=== PATIENT | female | born 1995 | race Caucasian/White ===

== ENCOUNTER 2021-03-17 14:31 | Outpatient (REF) | payer OTHER, SELFPAY ==
[2021-03-17 15:16] LABS: COVID-19 Test Negative (Negative); IDNOW Serial# 9DD0AD1C
== END 2021-03-17 14:32 | disposition home or self-care (01) ==
LOC: HO.LAB 14:31
PROVIDERS: PCP Family Medicine; Visit Provider Internal Medicine
DX: Z20.822 Contact with and (suspected) exposure to COVID-19 (principal)
CPT/HCPCS: 87635

== ENCOUNTER 2021-11-20 00:31 | Outpatient (REF) | payer OTHER, SELFPAY ==
[2021-11-20 01:12] LABS: COVID-19 Test Negative (Negative)
== END 2021-11-20 00:32 | disposition home or self-care (01) ==
LOC: HO.LAB 00:31
PROVIDERS: Visit Provider Internal Medicine
DX: Z20.822 Contact with and (suspected) exposure to COVID-19 (principal)
CPT/HCPCS: 87635

== ENCOUNTER 2022-04-18 09:08 | Outpatient (REF) | payer OTHER, SELFPAY ==
--- NOTE | ~2022-04-18 | CT_ITS ---
EXAMINATION: CT SOFT TISSUE NECK WITH CONTRAST CLINICAL INFORMATION: Enlarged lymph nodes. COMPARISON: There are no prior studies available for comparison. TECHNIQUE: Following the intravenous administration of 60 mL of Omnipaque 350 intravenous contrast, helical imaging was performed in the axial plane with generation of coronal and sagittal reformatted images. A few noncontrast images with a BB marking FLAIR were also obtained. This CT examination was performed using dose optimization techniques as appropriate, variously including the following: *Automated exposure control *Adjustment of mA and/or kV according to patient size (this includes techniques or standardized protocols for targeted exams where dose is matched to indication/reason for exam; i.e. extremities or head) *Use of iterative reconstruction technique DLP: 261 mGy-cm FINDINGS: There is no cervical lymphadenopathy. There are 1.2 cm left level IIA and 1.0 cm left level IIB lymph nodes subjacent to the BB marker. There are also smaller lymph nodes at multiple levels in the neck bilaterally. The parotid glands are homogeneous in attenuation; there is accessory parotid tissue along the masseter muscles bilaterally. The submandibular glands are normal. No contour abnormality or pathologic enhancement is seen within the oral cavity or pharyngeal mucosal space. The laryngeal structures are normal. The parapharyngeal fat is preserved. The carotid sheath vasculature opacifies normally. No extra mucosal soft tissue mass or fluid collection is seen. No retropharyngeal fluid collection is seen. The thyroid gland is normal. The left vertebral artery arises directly off the aortic arch, which is a normal variant. There is no mediastinal lymphadenopathy. The lung apices are clear. The mastoid air cells and visualized portions of the paranasal sinuses are well-aerated. The temporomandibular joints are normal. No periapical disease is identified. There is nonspecific straightening of the cervical lordosis which may be positional. There is no spondylosis or facet arthropathy. The imaged portions of the brain parenchyma are unremarkable. CT/CT soft tissue neck w IV con IMPRESSION: 1. There is no cervical lymphadenopathy. There are small lymph nodes at multiple levels in the neck as described above. No masses are demonstrated in the neck.
[2022-04-18] MEDS: iohexoL 350 MG/ML 100 ML INFUS..BTL IV (10:24)
== END 2022-04-18 09:09 | disposition home or self-care (01) ==
LOC: HO.CT 09:08
PROVIDERS: PCP Family Medicine; Visit Provider Specialist
DX: R59.9 Enlarged lymph nodes, unspecified (principal)
CPT/HCPCS: 70491; Q9967

== ENCOUNTER 2024-01-19 12:48 | Outpatient (REF) | payer OTHER, SELFPAY ==
--- NOTE | ~2024-01-19 | US_ITS ---
EXAMINATION: US DIAGNOSTIC ULTRASOUND BREAST, LEFT CLINICAL INFORMATION: 28-year-old female, palpable breast lump lower inner quadrant left breast x2 months. No significant family history. No recent injury.. COMPARISON: None available. TECHNIQUE: Ultrasound of the left breast is performed with real-time rapp scale imaging and color Doppler. Attention to the lower inner quadrant of the left breast was given in the region of palpable concern as indicated by the patient. FINDINGS: There is no focal suspicious finding left breast lower inner quadrant. There is no solid mass, architectural abnormality, cystic abnormality, abnormal shadowing, or edema in the soft tissue planes. US/US breast LT limited mamm only IMPRESSION: 1. No findings suspicious for malignancy left breast. 2. No ultrasound correlate for palpable abnormality left breast lower inner quadrant. Recommend clinical management and follow-up. ASSESSMENT: BI-RADS 1: Negative RECOMMENDATION: 1. Patient should be managed based on the clinical impression. Decision to proceed with biopsy should be based on clinical grounds and degree of clinical concern. This patient's information was entered into a reminder system with a target due date for their next mammogram. Electronically signed by: Lopez Santiago MD 02/09/2024 02:34 PM CHALO SANTO
== END 2024-01-19 12:49 | disposition home or self-care (01) ==
LOC: HO.MAMMO 12:48
PROVIDERS: PCP Nurse Practitioner Adult Health; Visit Provider Nurse Practitioner Adult Health
DX: N63.24 Unspecified lump in the left breast, lower inner quadrant (principal)
CPT/HCPCS: 76642

== ENCOUNTER → 2024-01-19 13:00 | Outpatient (BNV) | payer OTHER, SELFPAY | PROVIDERS: PCP Nurse Practitioner Adult Health; Visit Provider Radiology Diagnostic Radiology | DX: R92.2 Inconclusive mammogram (principal) | CPT/HCPCS: 76642 ==

== ENCOUNTER 2024-12-26 11:43 | Outpatient (REF) | payer OTHER, SELFPAY ==
--- NOTE | ~2024-12-26 | US_ITS ---
EXAMINATION(S): 1. MM DIAGNOSTIC DIGITAL BREAST TOMOSYNTHESIS, BILATERAL 2. Targeted ultrasound of the left breast CLINICAL INFORMATION: FIBROCYSTIC CHANGES Lt FMH BRCA. Patient describes 2 palpable lumps in the left breast located in the lower inner quadrant. COMPARISON: This is a baseline mammogram. TECHNIQUE: Digital breast tomosynthesis is performed in both the mediolateral oblique and craniocaudal views along with computer-aided detection (CAD). Synthesized 2D images are generated from the tomosynthesis. Skin BB markers were placed at the location of the palpable concern as indicated by the patient in the lower inner quadrant of the left breast. FINDINGS: BREAST COMPOSITION: The breasts are heterogeneously dense, which may obscure small masses. RIGHT BREAST: No significant masses, suspicious calcifications or other abnormalities are seen. LEFT BREAST: No significant masses, suspicious calcifications or other abnormalities are seen. In particular, no suspicious mammographic findings adjacent to the skin BB markers in the lower inner quadrant. Targeted ultrasound of the left breast was performed at the location of the palpable concerns as indicated by the patient. The survey throughout the lower inner quadrant did not reveal cysts, fluid collections or any suspicious sonographic findings. US/US Breast LT Limited Mamm Only IMPRESSION: RIGHT BREAST: Negative, no mammographic evidence of malignancy. LEFT BREAST: Negative, no evidence of malignancy. In particular, no mammographic or sonographic findings to accounts for patient's palpable concern. Clinical follow-up is recommended, independent of imaging findings. ASSESSMENT: BI-RADS: Category 1: Negative Results were provided to the patient at time of visit by the technologist. Electronically signed by: Raj Mott MD 12/26/2024 12:46 PM EDT
--- OUTSIDE RECORDS SUMMARY | 2024-12-26 15:09 | XMS_ITS | Encounter Summary ---
Author Organization [facility] Address Formerly [facility] [employer] [facility] [address] [place] [address] Phone Care Team Providers Care Roll Up Operator Name Role Phone Johann Faye MD Unavailable [phone] Clarence Maloney MD Unavailable [phone] Rudy Pradhan CNP Primary Care Provider [phone] Sonya Alcazar CNM Unavailable Jennifer Celeste MD, MPH Unavailable [phone] Encounter Details Date Type Department Care Team (Late Contact Info) Description 10/05/2019 Ancillary Orders [facility],Outside Imaging [address] [place] [address] System, Provider Not In, [facility] [address] [address] Social History Tobacco Use Types Packs/Day Years Used Date Smoking Tobacco: Never Smokeless Tobacco: Never Alcohol Use Standard Drinks/Week Comments Yes 0 (1 standard drink = 0.6 oz pur e alcohol) mixed drinks Comments No Sex and Gender Information Value Date Recorded Sex Assigned at Not on file Legal Sex Female 9:40 PM EDT Gender Identity Not on file Sexual Orientation Not on file 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 Not on file Not on file documented as of this encounter Plan of Treatment Upcoming Encounters Date Type Department Care Team (Late Contact Info) Description 02/16/2025 4:10 PM EST Office Visit [facility] [address] [place] [address] Racheal Stanford MD [address] [facility], [address] [place] [address] [email or web address] 05/31/2025 11:00 AM EDT Office [place] [facility] [address] [place] [address], [address]th Floor, [address] [place] [address] Sonya Christine MD [address] [place] [address] [address] [place] [address] [email or web address] documented as of this encounter Results * CT Chest Outside (No Interpretation) (10/03/2019 12:00 AM EDT) Narrative SYSTEMGENERATED, DOCUMENTATION - 10/05/2019 9:43 AM EDT This study is for PACS storage only and not for interpretation. us Provider Not In System PhD IMG OUTSIDE IMAGING W /OUT INTERPRETATION Final Result documented in this encounter Visit Diagnoses Not on filedocumented in this encounter Additional Health Concerns Infection Onset Date Last Indicated Resolved Time CoV-Risk 02/03/2020 02/04/2020 02/17/2020 1:24 AM EST CoV-Exposed Comment:Recent close contact documented in the COVID-19 PCR/PRO order 04/02/2020 04/04/2020 04/17/2020 1:[address] CoV-Risk 04/04/2020 04/04/2020 04/14/2020 1:24 AM EST CoV-Risk 03/25/2024 03/25/2024 04/05/2024 1:22 AM EST Influenza A 03/25/2024 03/25/2024 04/01/2024 1:22 AM EST Assessment Noted Time PHQ-2 Depression Total Score: 0 03/09/19 18 2:49 PM EST documented as of this encounter Care Teams Roll Up Operator Relationship Specialty Start Date End Date Rudy Pradhan CNP [address] [facility] [place] [address] [email or web address] PCP - General Family Medicine 02/14/19 Johann Faye MD [address] [place] [address] [email or web address] LMR Provider 12/21/16 03/09/21 Clarence Maloney MD [address] [place] [address], [address] [place] [address] [email or web address] Insurance Assigned Provider Family Medicine 03/20/17 Snoya Alcazar CNM [address] [place] [address], [address] [place] [address] [email or web address] Obstetrics and Gynecology 02/14/19 Jennifer Celeste MD, MPH [address] [place] [address], [address] [address] [email or web address] 03/28/19 10/01/23 documented as of this encounter Additional Source Comments The information contained in this document represents components of the legal health record. It is not the complete legal health record.[facility]
--- OUTSIDE RECORDS SUMMARY | 2024-12-26 15:09 | XMS_ITS | Encounter Summary ---
Author Organization [facility] Address [address] [place] [address] Phone Care Team Providers Care Coastal And Estuary Specialist Name Role Phone Clarence Maloney MD Unavailable [phone] Rudy Pradhan CNP Primary Care Provider [phone] Sonya Alcazar CNM Unavailable Encounter Details Date Type Department Care Team (Late st Contact Info) Description 04/06/2024 Procedure Pass [facility] Endoscopy Admitting Dept Virtual Department [address] [place] [address] Social History Tobacco Use Types Packs/Day Years Used Date Smoking Tobacco: Never Smokeless Tobacco: Never Alcohol Use Standard Drinks/Week Comments Not Currently 0 (1 standard drink = 0.6 oz pur e alcohol) 1-2x/month (2023) Child or Family Care Answer Date Record ed Do you have problems with on e of the following making it difficult for you to work, study, or receive health care? No 10/02/2023 Education Answer Date Recorded Are you interested in help w ith more adult education (for example, completing high school, GED, job training, learning the Telugu language, technical skills, or developing parenting skills)? No 10/02/2023 Are you concerned about learning? Not on file 10/02/2023 No 10/02/2023 Yes 10/02/2023 Food Answer Date Recorded Within the past 6 months we worried whether our food would run out before we got money to buy more. Never True 10/02/2023 Within the past 6 months the food we bought just didn't last and we didn't have enough money to get more. Never True Residential Stability Answer Date Recor ded What is your housing situation today? I have florence anglin 10/02/2023 How many times have you move d in the past 12 months? Zero (I did not move) 10/02/2023 Paying for Meds Answer Date Recorded Do you have trouble paying for medicines? No 10/02/2023 Paying Utility Bills Answer Date Record ed Do you have trouble paying your heating or elect ricity bill? No 10/02/2023 Transportation Answer Date Recorded Has the lack of transportati on kept you from medical appointments or from getting medications? No 10/02/2023 Unemployment Answer Date Recorded Are you currently unemployed or working on a part-time or temporary basis, and looking for work? No 10/02/2023 Digital Access Answer Date Recorded No 10/02/2023 Yes 10/02/2023 Do you have reliable internet access at home? Ye s 10/02/2023 Do you have a device (e.g., phone, tablet, computer) with a working camera? Yes 10/02/2023 Intimate Partner Violence Answer Date R ecorded Are you denied basic needs s uch as food, clothing, or medical care? No 04/06/2024 In the past 12 months have y ou been in a relationship with a person who hurts, threatens, or tries to control you? No 04/06/2024 Are you denied basic needs s uch as food, clothing, or medical care? No 04/06/2024 In the past 12 months have y ou been in a relationship with a person who hurts, threatens, or tries to control you? 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 file Not on file documented as of this encounter Plan of Treatment Upcoming Encounters Date Type Department Care Team (Late st Contact Info) Description 02/16/2025 4:10 PM EST Office Visit [facility] [address] [place] [address] [place] [address] Racheal Stanford MD [address] [place], [place] [address] [address] 05/31/2025 11:00 AM EDT Office Visit [facility] Re[facility]ive Surgery [address] [facility], 4th Floor, [address] [place] [address] Sonya Christine MD [address] [facility] [address] [place] [address] [email or web address] documented as of this encounter Visit Diagnoses Not on filedocumented in this encounter Additional Health Concerns Assessment Noted Time PHQ-2 Depression Total Score: 0 10/02/19 24 1:12 PM EDT documented as of this encounter Care Teams Coastal And Estuary Specialist Relationship Specialty Start Date End Date Rudy Pradhan CNP [address] [place] [address], [address] [place] [address] [email or web address] PCP - General Family Medicine 02/14/19 Clarence Maloney MD [address] [place] [address], [address] [place] [address] [email or web address] Insurance Assigned Provider Family Medicine 03/20/17 Sonya Alcazar CNM [address] [facility], [address] [place] [address] [email or web address] Obstetrics and Gynecology 02/14/19 documented as of this encounter Additional Source Comments The information contained in this document represents components of the legal health record. It is not the complete legal health record.[facility]
--- OUTSIDE RECORDS SUMMARY | 2024-12-26 15:09 | XMS_ITS | Clinical Summary ---
Author Organization [facility] Address [address] [facility] [address] [place] [address] Phone Care Team Providers Care Gym Teacher Name Role Phone Clarence Maloney MD Unavailable [phone] Kathie Pradhan CNP Primary Care Provider [phone] Sonya Alcazar CNM Unavailable Allergies No known active allergies Medications albuterol (PROAIR HFA) 90 mcg/actuation inhalerIndicati ons:Chest tightness Inhale 2 puffs into the lungs every 4 (four) hours as needed for wheezing. 1 Inhaler 0 Active bisacodyl (DULCOLAX) 5 mg EC tablet TAKE 4 TABLETS THE DAY BEFORE PROCEDURE ORALLY ONCE A DAY 1 5 Active GAVILYTE-G 236-22.74-6.74 -5.86 gram solution TAKE 4000ML BY MOUTH INSTRUCTED FOR 2 DAYS 5 Active Active Problems Problem Noted Date Diagnosed Date Abnormal TSH 10/02/2023 Assessment & Plan (10/02/2023 3:39 PM EDT): Mildly elevated in 2016, normal since. If normal this year, I would only check again if she is symptomatic. Restricted diet 10/02/2023 Assessment & Plan (10/02/2023 3:36 PM EDT): She is vegetarian and eats cheese and yogurt but not much other protein. Check labs. Encounter for general adult medical examination with abnormal findings 10/02/2023 Assessment & Plan (10/02/2023 3:38 PM EDT): Eligible for Covid and flu shots seasonally. Labs as below. Schedule annual GRIZZLY WORKER visit. Chronic constipation 10/02/2023 Assessment & Plan (10/02/2023 3:38 PM EDT): Referred to GI to discuss and consider colonoscopy. Start MiraLAX 17g every day or every other day or 1/2 cap daily. Ensure adequate water, dietary fiber, and exercise. Call with abdominal pain, worsening symptoms so we can assist with scheduling. Note that Jade is BRCA negative. Family history of colonic polyps 10/02/2023 Breast hypertrophy in female 10/02/2023 Assessment & Plan (10/02/2023 3:37 PM EDT): She is interested in a plastic surgery evaluation and will send a message with the name of her preferred provider. Tension headache 10/02/2023 Assessment & Plan (10/02/2023 3:37 PM EDT): Likely related to breast size, ergonomics. Offered PT referral which she declines. Take care with positioning. Lymphadenopathy of head and neck 10/07/2019 Assessment & Plan (10/02/2023 3:36 PM EDT): CT imaging was reassuring. There is no palpable adenopathy on examination. Chest discomfort 09/01/2019 Family history of BRCA2 gene positive 02/14/2019 Overview (04/29/2019): Patient with negative testing (2019) Dysmenorrhea 11/25/2017 Assessment & Plan (11/25/2017 4:34 PM EDT): Pelvic exam within normal limits. Reviewed available treatments for painful menstrual cycle. The patient is concerned about endometriosis, which she reports her sister has been diagnosed with. Reviewed symptoms of endometriosis and advised treatment for either disorder would be focused on pain relief or menstrual suppression. The patient declines treatment at this time and states her symptoms are tolerable. History of chicken pox 07/01/2017 Attention deficit disorder (ADD) without hyperac tivity 03/09/2017 Immunizations Immunization Administration Dates Next Due COVID-19 (Pre-12/22) Pfizer Vaccine, mRNA, PF 05/10/2020,04/19/2020 DTaP 11/26/1998, 7,07/30/1995,03/31,01/20/1995 Hepatitis B 09/18/1995,1994,1994 Hib, unspecified formulation 03/14/1996, 07/30/1995,03/31/1995,01/20 IPV 11/26/1998, 6,03/31/1995,01/20 Influenza Quadrivalent MDCK Preservative Free IM 12/15/2018 Influenza Quadrivalent Prese rvative Free IM 11/30/2017,12/03/2016 MMR 11/27/1999,03/14/1996 Meningococcal MCV4P 07/05/2008 Tdap 03/09/2017,01/20/2007 Varicella 08/31/1995 Family History Medical History Relation Comments BRCA 1/2 Brother BRCA2+ Bipolar disorder Brother BRCA 1/2 Father BRCA2+ Hypertension Father Kidney disease Father S/P transplant Prostate cancer Father Diabetes Maternal Grandfather Heart attack Maternal Grandfather Late 50s Hypertension Maternal Grandfather Prostate cancer Maternal Grandfather Cervical cancer Maternal Grandmother BRCA2+ Lung cancer Maternal Grandmother Non-smoker Anxiety disorder Mother Colon polyps Mother Depression Mother Hematuria Mother Kidney stone, be ing worked up Hyperlipidemia Mother Hypertension Mother Aneurysm Paternal Grandfather Brain Brain cancer Paternal Grandfather Leukemia Paternal Grandmother ADD / ADHD Sister Asthma Sister BRCA 1/2 Sister BRCA2+, planning mastectomy Colon polyps Sister Breast cancer Neg Hx Colon cancer Neg Hx Glaucoma Neg Hx Macular degeneration Neg Hx Stroke Neg Hx Relation Status Comments Brother Alive Father Maternal Grandfather Maternal Grandmother Mother Alive Paternal Grandfather Paternal Grandmother Sister Alive Social History Tobacco Use Types Packs/Day Years Used Date Smoking Tobacco: Never Smokeless Tobacco: Never Tobacco Cessation:Counseling Given: Not Answered Alcohol Use Standard Drinks/Week Comments Not Currently [...] high school, GED, job training, learning the Sammarinese language, technical skills, or developing parenting skills)? [...] your housing situation today? I have florence sing 10/02/2023 How many times have you move [...] file Not on file Not on file Last Filed Vital Signs Vital Sign Reading Time Taken Comments Blood Pressure 109/65 04/06/2024 2:01 PM EST Pulse 60 04/06/2024 2:01 PM EST Temperature 36.1 C (97 F) 04/06/2024 1:49 PM EST Respiratory Rate 17 04/06/2024 2:01 PM EST Oxygen Saturation 97% 04/06/2024 2:01 PM EST Inhaled Oxygen Concentration - - Weight 82.6 kg (182 lb) 04/04/2024 2:22 PM EST Height 167.6 cm (5' 6 ) 04/04/2024 2:22 PM EST Body Mass Index 29.38 04/04/2024 2:22 PM EST Plan of Treatment Upcoming Encounters Date Type Department Care Team (Late st Contact Info) Description 02/16/2025 4:10 PM EST Office Visit [facility] [address] [place] [id number] Racheal Stanford MD [address] [place] [address], [address] [place] [address] [email or web address] 05/31/2025 11:00 AM EDT Office Visit [facility] [address] [place] [address], [address] Floor, [address] [place] [address] Sonya Christine MD [address] [place] [id number] [email or web address] Maintenance Due Date Last Done Comments COLOGUARD 04/06/2024 FIT TEST 04/06/2024 FOBT 04/06/2024 SIGMOIDOSCOPY 04/06/2024 VIRTUAL COLONOSCOPY 04/06/2024 INFLUENZA VACCINE (#1) 2024 9, 11/30/2017, 12/03/2016 DEPRESSION SCREENING 10/01/2024 10/02/2023 COVID-19 VACCINE ( season) 2024 05/10/2020, 04/19/2020 PAP SMEAR 01/28/2025 01/28/2022, 11/01, 11/25/2017 Adult Td,Tdap Booster 03/09/2027 03/09/2017, 007 COLONOSCOPY 04/06/2029 04/06/2024 COLORECTAL CANCER SCREENING 04/06/2029 HIB VACCINES Completed 03/14/1996, 07/02, 03/31/1995, Additional history exists MENINGOCOCCAL VACCINES (ACWY) Aged Out 07/05/2008 No longer eligible based on patient's age to complete this topic HEPATITIS C SCREENING Completed 07/24/2021 HIV ONE-TIME SCREENING (18-65 YEARS) Completed 07/24/2021 SMOKING STATUS SCREENING (Once After 26 Yrs) Completed 04/06/2024 HEPATITIS A VACCINES Aged Out No long er eligible based on patient's age to complete this topic MENINGOCOCCAL VACCINES (B) Aged Out N o longer eligible based on patient's age to complete this topic PNEUMOCOCCAL VACCINES (0-49 years) Aged Out No longer eligible based on patient's age to complete this topic Medical Devices Not on file Procedures Procedure Name Priority Date/Time Associated Diagnosis Comments ENDOSCOPY, COLON 04/06/2024 1:21 PM EST PAP TEST Routine 01/28/2022 12:00 AM EST HEPATITIS C ANTIBODY, QUALITATIVE Routine 07/24/2021 2:54 PM EDT Need for hepatitis C screening test from Last 3 Months or Most Recently Relevant to Health Maintenance Results * ENDOSCOPY, COLON (04/06/2024 1:21 PM EST) Narrative Transcriptions Shayna Machado MD - 04/06/2024 1:21 PM EST [facility] Patient Name: Jade Driscolljose Attending MD:: SHAYNA MACHADO MD, Procedure Date: 04/06/2024 1:21 PM Date of : 1995 Age: 28 Admit Type: Outpatient Gender: Female Room: [place] [address] Referring MD: KATHIE PRADHAN Exam Type: Colonoscopy Indications: Colon cancer screening in patient at [facility]: Family history of 1st-degree relative with colon polyps before age 60 years Medications: Monitored Anesthesia Care Procedure: Informed consent was obtained from the patientafter discussion of the indications, limitations, alternatives, benefits, and risks of the procedure. Risks specifically discussed include but are not limited to medication reactions, missed lesions, bleeding, perforation, or the need for emergent surgery. Throughout the procedure, the patient's blood pressure, pulse, end-tidal CO2, and oxygensaturations were monitored continuously. The Olympus adult variable colonoscope CF-[id number] #1 was introduced through the anus and advanced to the terminal ileum, with identification of theappendiceal orifice and IC valve. The colonoscopy was performed without difficulty. The patient tolerated the procedure well. The quality of the bowelpreparation was good. The terminal ileum, ileocecal valve, appendiceal orifice, and rectum werephotographed. Complications: No immediate complications. Estimated blood loss:None. Findings: The terminal ileum appeared normal. Examination of the right colon was repeated in retroflexion and again in NBI. Retroflexion wasalso performed in the rectum. The entire examined colon appeared normal. Impression: - The examined portion of the ileum was normal. - The entire examined colon is normal. - No specimens collected. Recommendation: - Patient has a contact number available for emergencies. The signs and symptoms of potential delayed complications were discussed with thepatient. Return to normal activities tomorrow. Written discharge instructions were provided to thepatient. - Repeat colonoscopy in 5 years for screeningpurposes. Shayna Machado SHAYNA MACHADO MD 04/06/2024 1:56:19 PM This report has been signed electronically. Number of Addenda: 0 Note Initiated On: 04/06/2024 1:21 PM Procedure Code(s): --- Professional --- 47750, Colonoscopy, flexible; diagnostic, including collection of specimen(s) by brushing or washing, when performed (separateprocedure) --- Technical --- 57312, Colonoscopy, flexible; diagnostic, including collection of specimen(s) by brushing or washing, when performed (separateprocedure) CPT copyright 2021 [employer]. All rights reserved. The codes documented in this report are preliminary and upon sap technical architect reviewmay be revised to meet current compliance requirements. Procedure Date: 04/06/2024 1:21:[address] [place] [address] Kathie Pradhan [facility] GI PROCEDURE ORDERABLES F inal Result * Pap Smear (01/28/2022 12:00 AM EST) 01/28/2022 01/29/2022 10: 25 AM EST Narrative SEE NARRATIVE - 02/04/2022 11:15 AM EST [address] [address] Picking Table Worker: Florina Downing MD GRIZZLY WORKER Cytology Report FINAL DIAGNOSIS A. PAP SMEAR (SUREPATH) CE: SPECIMEN ADEQUACY: Satisfactory for evaluation; transformation zone absent/insufficient. INTERPRETATION: NEGATIVE FOR INTRAEPITHELIAL LESION OR MALIGNANCY. Fungal organisms morphologically consistent with Audra species. Electronically Signed Out By: BRENDAN Hayden(ASCP) The Pap test is a screening test primarily for squamous cancers and precursors and has associated false-negative and false-positive results. New technologies such as liquid-based preparations may decrease but will not eliminate all false-negative results. Regular sampling and follow-up of unexplained clinical signs and symptoms are recommended to minimize false negative results. CLINICAL HISTORY Date of Last Menstrual Period: 12-29-2021 Other Clinical Conditions: Screening Pap SPECIMEN SOURCE A: PAP SMEAR (SUREPATH) CE Patient Name: JADE SANTOS : 1995 (Age: 26) Sex: F Institution: [facility] Location: [facility] Date of Collection: 01/28/2022 Date of Reported: 02/04/2022 11:15 Results to: Sissy Anderson MSN, BS us Sissy Anderson CHARGE MASTER ANALYST CYTOLOGY ORDERABLES Final Resu lt Performing Organization Address City/[facility]/ZIP Co de Phone Number SEE NARRATIVE * Hepatitis C antibody, qualitative (07/24/2021 2:54 PM EDT) HCV NON-REACTIV E NON-REACTI VE [facility] Blood 07/24/2021 2:54 PM EDT 07/24/2021 3:02 PM EDT us Kathie Pradhan [facility] LAB BLOOD ORDERABLES [place] l Result Performing Organization Address City/[facility]/ZIP Co de Phone Number [facility] [address] [place], [place] [phone] from Last 3 Months or Most Recently Relevant to Health Maintenance Insurance [employer] AD[employer] Care Teams Gym Teacher Relationship Specialty Start Date End Date Kathie Pradhan CNP [address] [place] [address], [address] [place] [address] [email or web address] PCP - General Family Medicine 02/14/19 Clarence Maloney MD [address] [place] [address], [address] [place] [address] [email or web address] Insurance Assigned Provider Family Medicine 03/20/17 Sonya Alcazar CNM [address] [place] [address], [facility] [address] [place] [address] [email or web address] Obstetrics and Gynecology 02/14/19 Additional Source Comments The information contained in this document represents components of the legal health record. It is not the complete legal health record.[facility]
== END 2024-12-26 11:44 | disposition home or self-care (01) ==
LOC: HO.MAMMO 11:43
PROVIDERS: PCP Family Medicine; Visit Provider Nurse Practitioner Family
DX: N60.12 Diffuse cystic mastopathy of left breast (principal)
CPT/HCPCS: 76642; 77062; 77066

== ENCOUNTER → 2024-12-26 12:00 | Outpatient (BNV) | payer OTHER, SELFPAY | PROVIDERS: PCP Family Medicine; Visit Provider Radiology Body Imaging | DX: R92.8 Other abnormal and inconclusive findings on diagnostic imaging of breast (principal) | CPT/HCPCS: 76642; 77062; 77066 ==